=== PATIENT | male | born 1980 | race Two or more races ===

== ENCOUNTER 2024-10-19 15:57 | Emergency (ER) | payer OTHER, SELFPAY ==
--- NOTE | 2024-10-19 | ECG_ITS ---
Test Reason : chest pain Blood Pressure : */* mmHG Vent. Rate : 87 BPM Atrial Rate : 87 BPM P-R Int : 140 ms QRS Dur : 84 ms QT Int : 358 ms P-R-T Axes : 62 74 40 degrees QTcB Int : 430 ms Normal sinus rhythm Normal ECG No previous ECGs available Referred By: Generic ED Physician Electronically Signed By: AWILDA PANDYA
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
[2024-10-19 16:10] VITALS: BP 160/108; BP 177/88; PULSE 100; PULSE 85; RESP 20; TEMP 36.6; O2SAT 94; O2SAT 97; BMI 25.3
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
[2024-10-19 18:31] VITALS: BP 172/97; PULSE 81; RESP 17; TEMP 35.7; O2SAT 98
--- NOTE | 2024-10-19 19:18 | PC.NURSE ---
Reviewed discharge instruction with pt. pt verbalized understanding, no sign of distress.
[2024-10-19 19:19] VITALS: BP 172/97; PULSE 81; RESP 17; TEMP 35.7; O2SAT 98
== END 2024-10-19 19:21 | disposition home or self-care (01) ==
PROVIDERS: Emergency Provider Emergency Medicine
DX: S09.90XA Unspecified injury of head, initial encounter (principal); V43.52XA Car driver injured in collision with other type car in traffic accident, initial encounter; M79.641 Pain in right hand; M54.2 Cervicalgia; W22.11XA Striking against or struck by driver side automobile airbag, initial encounter; Y93.89 Activity, other specified; Y92.410 Unspecified street and highway as the place of occurrence of the external cause; Y99.9 Unspecified external cause status
CPT/HCPCS: 70450; 72125; 73130; 93005; 99284; 99285

== ENCOUNTER → 2024-10-19 16:14 | Outpatient (BNV) | payer OTHER, SELFPAY | PROVIDERS: Emergency Provider Emergency Medicine; Visit Provider Internal Medicine | DX: R07.9 Chest pain, unspecified (principal) | CPT/HCPCS: 93010 ==

== ENCOUNTER → 2024-10-19 16:33 | Outpatient (BNV) | payer OTHER, SELFPAY | PROVIDERS: Emergency Provider Emergency Medicine; Visit Provider Specialist | DX: M54.2 Cervicalgia (principal); M79.641 Pain in right hand | CPT/HCPCS: 70450; 72125; 73130 ==